=== PATIENT | female | born 1990 | race Two or more races ===

== ENCOUNTER 2018-01-05 01:18 | Inpatient (IN) | payer BC ==
[2018-01-05] MEDS ORDERED: Ondansetron 4 MG/2 ML SDV IVPUSH PRN (19:16)
[2018-01-05] MEDS ORDERED: Aluminum Hydroxide/Magnesium Hydroxide/Simethicone Susp 30 ML Cup PO PRN (19:16)
[2018-01-05] MEDS ORDERED: Terbutaline 1 MG/ML SDV SUBCUT ONE (19:16)
[2018-01-05] MEDS ORDERED: Methylergonovine 0.2 MG/1 ML Amp IM PRN (19:16)
[2018-01-05] MEDS ORDERED: Lidocaine 1% 50 ML MDV INJECT ONE (19:16)
[2018-01-05] MEDS ORDERED: fentaNYL 100 MCG/2 ML SDV IVPUSH PRN (19:16)
[2018-01-05] MEDS ORDERED: Acetaminophen 325 MG Tab PO PRN (19:16)
[2018-01-05] MEDS ORDERED: Sodium Chloride 0.9% 10 ML Syringe FLUSH PRN (19:16)
[2018-01-05] MEDS ORDERED: Misoprostol 100 MCG Tab VAG PRN (19:25)
[2018-01-05] MEDS ORDERED: Misoprostol 25 MCG (1/4 of 100 MCG) Tab VAG ONE (19:31)
[2018-01-05] MEDS ORDERED: Misoprostol 25 MCG (1/4 of 100 MCG) Tab VAG PRN (19:34)
--- NOTE | 2018-01-05 19:52 | PCM.LDHP ---
L&D History of Present Illness - General Date of Service: 01/05/18 Admit Problem/Dx: Patient Status Order with Admit Dx/Problem 01/05/18 19:16 Patient Status [ADT] Routine 01/05/18 19:25 Patient Status [ADT] Routine Admission Diagnosis/Problem Admission Diagnosis/Problem 39 weeks gestation of Source of Information: Patient History Limitations: Reports: No Limitations - History of Present Illness Introduction:: 27yo primip at 39 weeks gestation presents for cervical ripening and induction of labor due to LGA baby. Most recent ultrasound on 12/31/17 gave EFW of 8 lb 12 oz, >95% and prior ultrasound was on 11/29/17 and baby was on the 58%. Baby is vertex presentation on ultrasound. Her 1 hour glucola was normal at 97. has been unremarkable. labs show blood type O positive, antibody screen negative, Rubella immune, RPR NR, HBsAg negative, HIV negative, Hep C ab neg. Cell free DNA screen ([employer]) was normal with male gender. GBS test is negative. She did decline Tdap immunization antenatally, will offer again . She does plan to breastfeed. Patient denies having any contractions and no leaking of fluid and no vaginal bleeding. - Related Data Allergies/Adverse Reactions: Allergies Allergy/AdvReac Type Severity Reaction Status Date / Time No Known Allergies Allergy Verified 11/12/15 20:56 Home Medications: Home Meds . 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: Other (See Below) (PCOS) : 1 Para: 0 Social & Family History - Family History Family Medical History: Noncontributory - Tobacco Use Smoking Status *Q: Former Smoker Used Tobacco, but Quit: Yes - Tobacco Core Measures Tobacco Use/Smoking Within Last 30 Days: No Smokeless Tobacco Use in Last 30 Days: No - Alcohol Use Alcohol Use History: No - Recreational Drug Use Recreational Drug Use: No Drug Use in Last 12 Months: No - Sexual History Sexual History: Reports: Sexually Active, Single Partner - Living Situation & Occupation Living situation: Reports: H&P Review of Systems - Review of Systems: Review Of Systems: See Below General: Reports: No Symptoms HEENT: Reports: No Symptoms Pulmonary: Reports: No Symptoms Cardiovascular: Reports: No Symptoms Gastrointestinal: Reports: No Symptoms Genitourinary: Reports: No Symptoms Musculoskeletal: Reports: No Symptoms Skin: Reports: No Symptoms Psychiatric: Reports: No Symptoms Neurological: Reports: No Symptoms Hematologic/Lymphatic: Reports: No Symptoms Immunologic: Reports: No Symptoms L&D Exam - Exam Exam: See Below - Vital Signs Weight: 129.274 kg - OB Specific Movement: Active Heart Tones: Present Heart Tones per Min: 130 Heart Rate (FHR) Variability: Moderate (6-25 bmp) Presentation: Vertex Estimated Weight: 8 lb 12 oz - [place] Score Angeles Score Cervix Position: Midposition [place] Score Consistency: Medium [place] Score Effacement: 0-30% [place] Score Dilation: Closed [place] Score Infant's Station: -2 [place] Score Total: 3 - Exam General: Alert, Oriented HEENT: Conjunctiva Clear, Mucosa Moist & [place] Neck: Supple, Trachea Midline Lungs: Normal Respiratory Effort Cardiovascular: Regular Rate, Regular Rhythm GI/Abdominal Exam: Soft, Other (Obese) Genitourinary: Normal external exam Back Exam: Normal Inspection Extremities: Normal Inspection, No Pedal Edema Skin: Warm, Dry, Intact Neurological: Normal Gait, Normal Speech Psychiatric: Alert, Normal Affect, Normal Mood - Problem List (1) with 39 completed weeks gestation SNOMED Code(s): 19139088 ICD Code: Z3A.39 - 39 WEEKS GESTATION OF Status: Acute Current Visit: Yes (2) LGA (large for gestational age) fetus SNOMED Code(s): 119221410 ICD Code: [id number] - Status: Acute Current Visit: Yes (3) Obesity SNOMED Code(s): 868433391, 752847283 ICD Code: E66.9 - OBESITY, UNSPECIFIED Status: Acute Current Visit: Yes Problem List Initiated/Reviewed/Updated: Yes Orders Last 24hrs: Active Orders 24 hr Category Date Time Status Patient Status [ADT] Routine ADT 01/05/18 19:25 Active Activity as Tolerated [RC] PFP Care 01/05/18 19:16 Active Communication Order [RC] ASDIRECTED Care 01/05/18 19:16 Active Communication Order [RC] ASDIRECTED Care 01/05/18 19:25 Active Communication Order [RC] ASDIRECTED Care 01/05/18 19:25 Active Heart Tones [RC] ASDIRECTED Care 01/05/18 19:18 Active Monitoring [RC] INTERMITTENT Care 01/05/18 19:25 Active Notify Provider [RC] ASDIRECTED Care 01/05/18 19:25 Active Notify Provider [RC] PFP Care 01/05/18 19:16 Active Notify Provider [RC] PRN Care 01/05/18 19:16 Active Peripheral IV Care [RC] . DIRECTED Care 01/05/18 19:18 Active Up ad Kassandra [RC] ASDIRECTED Care 01/05/18 19:27 Active Vaginal Exam [RC] ASDIRECTED Care 01/05/18 19:25 Active Vital Signs [RC] PER UNIT ROUTINE Care 01/05/18 19:16 Active Regular Diet [DIET] Diet 01/06/18 Breakfast Active CBC W/O DIFF,HEMOGRAM [HEME] Stat Lab 01/05/18 19:16 Ordered RAPID PLASMA REAGIN,RPR [CHEM] Stat Lab 01/05/18 19:16 Ordered TYPE AND SCREEN [BBK] Stat Lab 01/05/18 19:16 Ordered UA W/O MICROSCOPIC [URIN] Stat Lab 01/05/18 19:16 Ordered Acetaminophen [Tylenol] Med 01/05/18 19:16 Active 650 mg PO Q4H PRN Alum Hydrox/Mag Hydrox/Simeth [Mag-Al Plus] Med 01/05/18 19:16 Active 30 ml PO Q8H PRN Lactated Ringers [Ringers, Lactated] 1,000 ml Med 01/05/18 19:30 Active IV ASDIRECTED Methylergonovine [Methergine] Med 01/05/18 19:16 Active 0.2 mg IM ONETIME PRN Misoprostol [Cytotec] Med 01/05/18 19:34 Active 25 mcg VAG Q4H PRN Ondansetron [Zofran] Med 01/05/18 19:16 Active 4 mg IVPUSH Q4H PRN Sodium Chloride 0.9% [Saline Flush] Med 01/05/18 19:16 Active 10 ml FLUSH ASDIRECTED PRN fentaNYL [Sublimaze] Med 01/05/18 19:16 Active 100 mcg IVPUSH Q1H PRN Electronic Heart Tones Ext w TOCO [WOMSER] Oth 01/05/18 19:16 Ordered Routine Electronic Heart Tones Internal [WOMSER] Per Unit Ot 01/05/18 19:16 Ordered Routine Peripheral IV Insertion Adult [OM.PC] Routine Oth 01/05/18 19:16 Ordered Resuscitation Status Routine Resus Stat 01/05/18 19:16 Ordered Medication Orders Acetaminophen (Tylenol) 650 mg PO Q4H PRN PRN Reason: Pain (Mild 1-3) and fever Al Hydroxide/Mg Hydroxide (Mag-Al Plus) 30 ml PO Q8H PRN PRN Reason: Heartburn Fentanyl (Sublimaze) 100 mcg IVPUSH Q1H PRN PRN Reason: Pain (moderate 4-6) Lactated Ringer's (Ringers, Lactated) 1,000 mls @ 100 mls/hr IV ASDIRECTED JORGE Methylergonovine Maleate (Methergine) 0.2 mg IM ONETIME PRN PRN Reason: Excessive Vaginal bleeding Misoprostol (Cytotec) 25 mcg VAG Q4H PRN PRN Reason: cervical ripening Ondansetron HCl (Zofran) 4 mg IVPUSH Q4H PRN PRN Reason: Nausea/Vomiting Sodium Chloride (Saline Flush) 10 ml FLUSH ASDIRECTED PRN PRN Reason: Keep Vein Open Assessment/Plan Comment:: 27 yo at 39 weeks gestation with LGA baby noted on ultrasound. has otherwise been unremarkable. GBS negative, blood type O positive. Pt is not having any contractions at this time. FHR is reactive. Plan: Will place Cytotec 25 mcg vaginally for cervical ripening and induction of labor per protocol. Intermittent FHR monitoring. Pitocin if needed once cervix has ripened. Mom plans to breast feed. Will plan skin to skin after delivery if baby is active and stable and allow self attachment of baby to breast. If baby is determined to be LGA after delivery, will need to monitor blood sugars per protocol.
[2018-01-06] MEDS ORDERED: Oxytocin/Lactated Ringers 10 UNIT/1,000 ML BAG IV SCH (05:30)
[2018-01-06] MEDS: Lactated Ringers 1,000 ML IV SCH ×6 (05:42→22:43)
--- NOTE | 2018-01-06 08:03 | PCM.PNLD ---
Labor Progress Note - VS & Meds Vital Signs: Last Vital Signs Temp 36.9 C 01/05/18 19:16 Pulse 82 01/05/18 19:16 Resp 16 01/05/18 19:16 BP 126/82 01/05/18 19:16 Pulse Ox Active Medications: Current Medications Acetaminophen (Tylenol) 650 mg PO Q4H PRN PRN Reason: Pain (Mild 1-3) and fever Al Hydroxide/Mg Hydroxide (Mag-Al Plus) 30 ml PO Q8H PRN PRN Reason: Heartburn Fentanyl (Sublimaze) 100 mcg IVPUSH Q1H PRN PRN Reason: Pain (moderate 4-6) Lactated Ringer's (Ringers, Lactated) 1,000 mls @ 100 mls/hr IV ASDIRECTED JORGE Last Admin: 01/06/18 05:42 Dose: 100 mls/hr Oxytocin/Lactated Ringer's (Pitocin In Lr 10 Units/1,000 Ml) 10 unit in 1,000 mls @ 12 mls/hr IV TITRATE JORGE; Protocol Last Admin: 01/06/18 05:46 Dose: 1 munits/min, 6 mls/hr Methylergonovine Maleate (Methergine) 0.2 mg IM ONETIME PRN PRN Reason: Excessive Vaginal bleeding Misoprostol (Cytotec) 25 mcg VAG Q4H PRN PRN Reason: cervical ripening Last Admin: 01/06/18 00:44 Dose: 25 mcg Ondansetron HCl (Zofran) 4 mg IVPUSH Q4H PRN PRN Reason: Nausea/Vomiting Sodium Chloride (Saline Flush) 10 ml FLUSH ASDIRECTED PRN PRN Reason: Keep Vein Open Discontinued Medications Lidocaine HCl (Xylocaine 1%) 10 ml INJECT ONETIME ONE Stop: 01/05/18 19:17 Misoprostol (Cytotec) 25 mcg VAG Q4H PRN PRN Reason: cervical ripening Misoprostol (Cytotec) 25 mcg VAG ONETIME ONE Stop: 01/05/18 19:32 Last Admin: 01/05/18 20:29 Dose: 25 mcg Terbutaline Sulfate (Brethine) 0.25 mg SUBCUT ONETIME ONE Stop: 01/05/18 19:17 - Uterine Contractions Uterine Monitoring Mode: External [place] Contraction Frequency (min): 1-2 Contraction Duration (sec): 60 Contraction Intensity: Mild to Moderate Uterine Resting Tone: Soft - Monitoring Monitor Mode: External Ultrasound Heart Rate (FHR) Baseline: 135 Heart Rate (FHR) Variability: Moderate (6-25 bmp) Accelerations: Present, 15x15 Decelerations: None Strip Review: Category I - Vaginal Exam Dilation (cm): 1 Effacement (Percent): 50 Station: -2 Cervical Position: Anterior Sterile Vaginal Exam Performed By: Phuong Sam - Labor Progress (Free Text) Labor Progress: Patient has had 2 doses of 25 mcg vaginal cytotec, last dose at 0045. She started having tightenings that have been q1-2 minutes that started about an hour after the second dose. Patient feels some discomfort in the back, but not distressed by the contractions. WE started pitocin at 1mU/min shortly after 0500 and it is still at 1 mu/min. Patient is comfortable sitting in the recliner, but have difficulty picking up FHR in that position. Strip has been category I all night. Assessment: Early labor Plan: Will increase pitocin per protocol. I will recheck at noon and at that time try to do AROM and apply internal scalp lead. Encourage ambulation and position changes.
[2018-01-06] MEDS ORDERED: Magnesium Sulfate/Water 40 GM/1,000 ML BAG ONE (08:04)
--- NOTE | 2018-01-06 12:58 | PCM.PNLD ---
Labor Progress Note - VS & Meds Vital Signs: Last Vital Signs Temp 36.9 C 01/05/18 19:16 Pulse 82 01/05/18 19:16 Resp 16 01/05/18 19:16 BP 126/82 01/05/18 19:16 Pulse Ox Active Medications: Current Medications Acetaminophen (Tylenol) 650 mg PO Q4H PRN PRN Reason: Pain (Mild 1-3) and fever Al Hydroxide/Mg Hydroxide (Mag-Al Plus) 30 ml PO Q8H PRN PRN Reason: Heartburn Fentanyl (Sublimaze) 100 mcg IVPUSH Q1H PRN PRN Reason: Pain (moderate 4-6) Lactated Ringer's (Ringers, Lactated) 1,000 mls @ 100 mls/hr IV ASDIRECTED JORGE Last Admin: 01/06/18 05:42 Dose: 100 mls/hr Oxytocin/Lactated Ringer's (Pitocin In Lr 10 Units/1,000 Ml) 10 unit in 1,000 mls @ 12 mls/hr IV TITRATE JORGE; Protocol Last Titration: 01/06/18 10:15 Dose: 4 munits/min, 24 mls/hr Methylergonovine Maleate (Methergine) 0.2 mg IM ONETIME PRN PRN Reason: Excessive Vaginal bleeding Misoprostol (Cytotec) 25 mcg VAG Q4H PRN PRN Reason: cervical ripening Last Admin: 01/06/18 00:44 Dose: 25 mcg Ondansetron HCl (Zofran) 4 mg IVPUSH Q4H PRN PRN Reason: Nausea/Vomiting Sodium Chloride (Saline Flush) 10 ml FLUSH ASDIRECTED PRN PRN Reason: Keep Vein Open Discontinued Medications Magnesium Sulfate (Magnesium Sulfate 40 Gm In Water 1000 Ml) Confirm Administered Dose 40 gm in 1,000 mls @ as directed .ROUTE .STK-MED ONE Stop: 01/06/18 08:05 Lidocaine HCl (Xylocaine 1%) 10 ml INJECT ONETIME ONE Stop: 01/05/18 19:17 Misoprostol (Cytotec) 25 mcg VAG Q4H PRN PRN Reason: cervical ripening Misoprostol (Cytotec) 25 mcg VAG ONETIME ONE Stop: 01/05/18 19:32 Last Admin: 01/05/18 20:29 Dose: 25 mcg Terbutaline Sulfate (Brethine) 0.25 mg SUBCUT ONETIME ONE Stop: 01/05/18 19:17 - Uterine Contractions Uterine Monitoring Mode: IUPC Contraction Frequency (min): 1-2 Contraction Duration (sec): 60 Contraction Intensity: Moderate Uterine Resting Tone: Soft - Monitoring Monitor Mode: Spiral Electrode Heart Rate (FHR) Baseline: 135 Heart Rate (FHR) Variability: Moderate (6-25 bmp) Accelerations: Present, 15x15 Decelerations: None Strip Review: Category I - Vaginal Exam Dilation (cm): 1-2 Effacement (Percent): 60 Station: -2 Cervical Position: Anterior Sterile Vaginal Exam Performed By: Phuong Sam - Labor Progress (Free Text) Labor Progress: Currently at 6mU/min pitocin infusion. Patient still pretty comfortable, but feels that the contractions are getting stronger. It has been very difficult to keep FHR monitoring and contractions monitoring with her position of comfort. Assessment - Early labor, still ineffective contractions, but difficult to monitor. Plan: AROM performed to augment labor and clear fluid draining. Discussed internal monitoring with parents and they consent. Internal scalp lead applied and IUPC appied. Resting tone is 30 mm Hg with contraction intensity about 45 and MVU in first 10 minute period was 180. Will increase pitocin as needed to get MVU about 250 as long as baby tolerates.
[2018-01-06] MEDS ORDERED: fentaNYL 100 MCG/2 ML SDV EPIDUR PRN (14:28)
[2018-01-06] MEDS ORDERED: ePHEDrine 50 MG/ML SDV IVPUSH PRN (14:28)
[2018-01-06] MEDS ORDERED: diphenhydrAMINE 50 MG/ML SDV IVPUSH PRN (14:28)
[2018-01-06] MEDS: Bupivacaine/fentaNYL/NS 100 ML Bag EPIDUR SCH ×2 (14:58→22:44)
--- NOTE | 2018-01-06 15:18 | PCM.PREANE ---
Preanesthetic Assessment - Anesthesia/Transfusion/Family Hx Anesthesia History: No Prior Anesthesia Family History of Anesthesia Reaction: No Transfusion History: No Prior Transfusion(s) - Review of Systems General: No Symptoms Pulmonary: No Symptoms Cardiovascular: No Symptoms Gastrointestinal: Abdominal Pain (labor contractions) Neurological: No Symptoms Other: Reports: None - Physical Assessment Pulse: 82 O2 Sat by Pulse Oximetry: 97 Respiratory Rate: 16 Blood Pressure: 126/82 Temperature: 36.3 C Vital Signs: Last Vital Signs Temp 36.9 C 01/05/18 19:16 Pulse 82 01/05/18 19:16 Resp 16 01/05/18 19:16 BP 126/82 01/05/18 19:16 Pulse Ox Height: 1.63 m Weight: 129.274 kg ASA Class: 2 Mental Status: Alert & Oriented x3 Airway Class: Mallampati = 2 Dentition: Reports: Normal Dentition Thyro-Mental Finger Breadths: 3 Mouth Opening Finger Breadths: 2 ROM/Head Extension: Full Lungs: Clear to Auscultation, Normal Respiratory Effort Cardiovascular: Regular Rate, Regular Rhythm - Lab Values: Laboratory Last Values WBC 8.76 K/mm3 (3.98-10.04) 01/05/18 19:35 RBC 4.48 M/mm3 (3.98-5.22) 01/05/18 19:35 Hgb 12.7 gm/L (11.2-15.7) 01/05/18 19:35 Hct 38.1 % (34.1-44.9) 01/05/18 19:35 MCV 85.0 fl (79.4-94.8) 01/05/18 19:35 MCH 28.3 pg (25.6-32.2) 01/05/18 19:35 MCHC 33.3 g/dl (32.2-35.5) 01/05/18 19:35 RDW Std Deviation 47.1 fL (36.4-46.3) H 01/05/18 19:35 Plt Count 238 K/mm3 (182-369) 01/05/18 19:35 MPV 11.3 fl (9.4-12.3) 01/05/18 19:35 Urine Color Yellow (Yellow) 01/05/18 22:30 Urine Appearance Clear (Clear) 01/05/18 22:30 Urine pH 7.0 (5.0-8.0) 01/05/18 22:30 Ur Specific [place] 1.015 (1.005-1.030) 01/05/18 22:30 Urine Protein Negative (Negative) 01/05/18 22:30 Urine Glucose (UA) Negative (Negative) 01/05/18 22:30 Urine Ketones Negative (Negative) 01/05/18 22:30 Urine Occult Blood Negative (Negative) 01/05/18 22:30 Urine Nitrite Negative (Negative) 01/05/18 22:30 Urine Bilirubin Negative (Negative) 01/05/18 22:30 Urine Urobilinogen 0.2 (0.2-1.0) 01/05/18 22:30 Ur Leukocyte Esterase 1+ (Negative) H 01/05/18 22:30 RPR Non-reactive (NONREACTIVE) 01/05/18 19:35 Blood Type O POSITIVE 01/05/18 19:35 Gel Antibody Screen Negative 01/05/18 19:35 - Allergies Allergies/Adverse Reactions: Allergies Allergy/AdvReac Type Severity Reaction Status Date / Time No Known Allergies Allergy Verified 11/12/15 20:56 - Blood Blood Available: No Product(s) Available: None - Anesthesia Plan Pre-Op Medication Ordered: None - Acknowledgements Anesthesia Type Planned: Epidural Pt an Appropriate Candidate for the Planned Anesthesia: Yes Alternatives and Risks of Anesthesia Discussed w Pt/Guardian: Yes Pt/Guardian Understands and Agrees with Anesthesia Plan: Yes PreAnesthesia Questionnaire - Past Health History Medical/Surgical History: Denies Medical/Surgical History Gastrointestinal History: Reports: GERD 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 [No Known Home Meds] 08/05/14 [History] Multivitamin [Multivitamins] 1 cap PO DAILY 11/12/15 [History] [place]-3/DHA/Epa/Fish Oil [Fish Oil] 0 mg PO DAILY 11/12/15 [History] - CURRENT (IN HOUSE) MEDS Current Meds: Current Medications Acetaminophen (Tylenol) 650 mg PO Q4H PRN PRN Reason: Pain (Mild 1-3) and fever Al Hydroxide/Mg Hydroxide (Mag-Al Plus) 30 ml PO Q8H PRN PRN Reason: Heartburn Diphenhydramine HCl (Benadryl) 25 mg IVPUSH Q6H PRN PRN Reason: Itching Ephedrine Sulfate (Ephedrine Sulfate) 5 mg IVPUSH ASDIRECTED PRN PRN Reason: HYPOTENTSION Fentanyl (Sublimaze) 100 mcg IVPUSH Q1H PRN PRN Reason: Pain (moderate 4-6) Last Admin: 01/06/18 14:58 Dose: 100 mcg Fentanyl (Sublimaze) 100 mcg EPIDUR Q3H PRN PRN Reason: Pain Fentanyl/Bupivacaine HCl (Fentanyl/Bupivacaine/Ns 2 Mcg-0.125% 100 Ml) 100 ml EPIDUR ASDIRECTED [facility] Last Admin: 01/06/18 14:58 Dose: 100 ml Lactated Ringer's (Ringers, Lactated) 1,000 mls @ 100 mls/hr IV ASDIRECTED [facility] Last Admin: 01/06/18 14:52 Dose: 100 mls/hr Oxytocin/Lactated Ringer's (Pitocin In Lr 10 Units/1,000 Ml) 10 unit in 1,000 mls @ 12 mls/hr IV TITRATE [facility]; Protocol Last Titration: 01/06/18 13:35 Dose: 6 munits/min, 36 mls/hr Methylergonovine Maleate (Methergine) 0.2 mg IM ONETIME PRN PRN Reason: Excessive Vaginal bleeding Misoprostol (Cytotec) 25 mcg VAG Q4H PRN PRN Reason: cervical ripening Last Admin: 01/06/18 00:44 Dose: 25 mcg Ondansetron HCl (Zofran) 4 mg IVPUSH Q4H PRN PRN Reason: Nausea/Vomiting Sodium Chloride (Saline Flush) 10 ml FLUSH ASDIRECTED PRN PRN Reason: Keep Vein Open Discontinued Medications Magnesium Sulfate (Magnesium Sulfate 40 Gm In Water 1000 Ml) Confirm Administered Dose 40 gm in 1,000 mls @ as directed .ROUTE .STK-MED ONE Stop: 01/06/18 08:05 Lidocaine HCl (Xylocaine 1%) 10 ml INJECT ONETIME ONE Stop: 01/05/18 19:17 Misoprostol (Cytotec) 25 mcg VAG Q4H PRN PRN Reason: cervical ripening Misoprostol (Cytotec) 25 mcg VAG ONETIME ONE Stop: 01/05/18 19:32 Last Admin: 01/05/18 20:29 Dose: 25 mcg Terbutaline Sulfate (Brethine) 0.25 mg SUBCUT ONETIME ONE Stop: 01/05/18 19:17
--- NOTE | 2018-01-06 18:51 | PCM.SN ---
- Free Text/Narrative Note: 1849 epidural gtt rate decreased to 10ml/hr VSS
[2018-01-06] MEDS ORDERED: Bupivacaine 0.25% 10 ML SDV ONE (22:00)
[2018-01-07] MEDS ORDERED: Metoclopramide 10 MG/2 ML SDV IVPUSH ONE (00:48)
[2018-01-07] MEDS ORDERED: ceFAZolin 2 GM in Premix Bag 1 BAG IV ONE (00:49)
[2018-01-07] MEDS ORDERED: Citric Acid/Sodium Citrate Solution 30 ML Cup PO ONE (00:49)
[2018-01-07] MEDS ORDERED: Bupivacaine 0.5% 30 ML SDV ONE (00:52)
[2018-01-07] MEDS ORDERED: Metoclopramide 10 MG/2 ML SDV ONE (00:52)
[2018-01-07] MEDS ORDERED: Citric Acid/Sodium Citrate Solution 30 ML Cup ONE (00:52)
--- NOTE | 2018-01-07 00:56 | PCM.CONS ---
H&P History of Present Illness - General Date of Service: 01/07/18 Admit Problem/Dx: Patient Status Order with Admit Dx/Problem 01/05/18 19:16 Patient Status [ADT] Routine 01/05/18 19:25 Patient Status [ADT] Routine Admission Diagnosis/Problem Admission Diagnosis/Problem 39 weeks gestation of Source of Information: Patient History Limitations: Reports: No Limitations - History of Present Illness Symptom Onset Date: 01/06/18 Duration of Symptoms: Reports: Hour(s): Improves with: Reports: None Worsens with: Reports: None Associated Symptoms: Reports: No Other Symptoms - Related Data Allergies/Adverse Reactions: Allergies Allergy/AdvReac Type Severity Reaction Status Date / Time No Known Allergies Allergy Verified 11/12/15 20:56 Home Medications: Home Meds . 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) (PCOS) Social & Family History - Family History Family Medical History: Noncontributory - Tobacco Use Smoking Status *Q: Former Smoker Used Tobacco, but Quit: Yes Second Hand Smoke Exposure: No - Caffeine Use Caffeine Use: Reports: None - Recreational Drug Use Recreational Drug Use: No Drug Use in Last 12 Months: No - Sexual History Sexual History: Reports: Sexually Active, Single Partner - Living Situation & Occupation Living situation: Reports: H&P Review of Systems - Review of Systems: Review Of Systems: See Below General: Reports: No Symptoms HEENT: Reports: No Symptoms Pulmonary: Reports: No Symptoms Cardiovascular: Reports: No Symptoms Gastrointestinal: Reports: No Symptoms Genitourinary: Reports: No Symptoms Musculoskeletal: Reports: No Symptoms Skin: Reports: No Symptoms Psychiatric: Reports: No Symptoms Neurological: Reports: No Symptoms Hematologic/Lymphatic: Reports: No Symptoms Immunologic: Reports: No Symptoms Exam - Exam Exam: See Below - Vital Signs Vital Signs: Last Vital Signs Temp 97.3 F 01/06/18 15:17 Pulse 82 01/06/18 15:17 Resp 16 01/06/18 15:17 BP 126/82 01/06/18 15:17 Pulse Ox 97 01/06/18 15:17 Weight: 285 lb - Exam (Female) Exam: Enlarged Uterus, Other (non-reassuring heart rate, failure to progress, 39 weeks 1 day, suspected macrosomia) - Patient Data Lab Results Last 24 hrs: Laboratory Results - last 24 hr 01/05/18 Range/Units 19:35 RPR Non-reactive (NONREACTIVE) Result Diagrams: 01/05/18 19:35 Consult PN Assessment/Plan Procedures: Procedures ASSAY OF ACTH (11/30/15) ASSAY OF FREE TESTOSTERONE (11/15/15) ASSAY OF GONADOTROPIN (FSH) (11/15/15) ASSAY OF GONADOTROPIN (LH) (11/15/15) ASSAY OF PROGESTERONE 17-D (11/15/15) ASSAY OF PROLACTIN (11/15/15) BLOOD TYPING SEROLOGIC ABO (07/12/17) BLOOD TYPING SEROLOGIC RH(D) (07/12/17) CHYLMD TRACH DNA AMP PROBE (07/19/17) COMPLETE CBC W/AUTO DIFF WBC (07/12/17) DEHYDROEPIANDROSTERONE (11/15/15) EMERGENCY DEPT VISIT (11/12/15) EMERGENCY DEPT VISIT (08/05/14) BIOPHYS PROFIL W/O NST (12/31/17) NON-STRESS TEST (11/16/17) HEPATITIS C AB TEST (07/12/17) HYDRATE IV INFUSION ADD-ON (08/05/14) N.GONORRHOEAE DNA AMP PROB (07/19/17) OB US >/= 14 WKS SNGL FETUS (09/06/17) OB US FOLLOW-UP PER FETUS (12/31/17) OB US LIMITED FETUS(S) (07/19/17) RBC ANTIBODY SCREEN (07/12/17) ROUTINE VENIPUNCTURE (08/16/17) STREP B DNA AMP PROBE (12/13/17) THER/PROPH/DIAG INJ IV PUSH (08/05/14) TOTAL CORTISOL (11/30/15) TX/PRO/DX INJ NEW DRUG ADDON (08/05/14) URINALYSIS AUTO W/O SCOPE (01/03/18) URINALYSIS AUTO W/SCOPE (11/16/17) URINE CULTURE/COLONY COUNT (09/13/17) URINE TEST (07/12/17) VARICELLA-ZOSTER ANTIBODY (07/12/17) (1) Failure to progress in labor, delivered, current hospitalization SNOMED Code(s): 066876488 Code(s): O62.2 - OTHER UTERINE INERTIA Current Visit: Yes (2) Non-reassuring heart tones, delivered, current hospitalization SNOMED Code(s): 579948873 Code(s): O76 - ABNLT IN HEART RATE AND RHYTHM COMP LABOR AND DELIVERY Current Visit: Yes (3) with 39 completed weeks gestation SNOMED Code(s): 45287987 Code(s): Z3A.39 - 39 WEEKS GESTATION OF Current Visit: Yes (4) LGA (large for gestational age) fetus SNOMED Code(s): 003769237 Code(s): CJS6489 - Current Visit: Yes (5) Obesity SNOMED Code(s): 948183791, 110295818 Code(s): E66.9 - OBESITY, UNSPECIFIED Current Visit: Yes Qualifiers: Obesity type: due to excess calories Obesity classification: unspecified obesity classification Serious obesity comorbidity presence: unspecified whether serious comorbidity present Qualified Code(s): E66.09 - Other obesity due to excess calories Problem List Initiated/Reviewed/Updated: No My Orders Last 24 Hours: My Active Orders 01/07/18 00:48 Metoclopramide [Reglan] 10 mg IVPUSH ONETIME ONE Schedule Procedure [COMM] Stat 01/07/18 00:49 Citric Acid/Sodium Citrate [Bicitra Solution] 30 ml PO ONETIME ONE ceFAZolin [Ancef] 2 gm Premix Bag 1 bag IV ONETIME Plan: section
--- NOTE | 2018-01-07 02:10 | PCM.OPNOTE ---
- General Post-Op/Procedure Note Date of Surgery/Procedure: 01/07/18 Operative Procedure(s): Primary section low segment transverse Pre Op Diagnosis: 39 weeks gestation, nonreassuring heart rate pattern, failure to progress Post-Op Diagnosis: Same plus nuchal cord times one Anesthesia Technique: Epidural Primary Surgeon: Steven Morel Secondary Surgeon: Phuong Sam Anesthesia Provider: Chong Cardenas Reason Mold Insert Changer Was Necessary: Retraction, difficult surgery, decrease comorbidity and comortality Role of Mold Insert Changer: Retraction, difficult surgery, decrease comorbidity and comortality Fluid Replacement, Intraop: 3,000 Output, Urine Amount: 100 EBL in mLs: 300 Drain/Tube Comments:: Gordon catheter Complications: None Condition: Good Free Text/Narrative:: Patient was transported to operating room and placed under epidural anesthesia in the supine position with wedge under the right hip and right flank. SCDs in place and functioning prior surgery. Patient received 2 g of Ancef intravenously. Utilizing C drape, patient prepared and draped in a sterile fashion. Timeout performed confirming name, date of , procedure as section. Adequate level of anesthesia was confirmed. was brought to the operating room. Injecting 20 mL of 0.5% Marcaine without epinephrine in the area of the planned incision which had been marked with marking pen. Pfannenstiel incision was made and carried sharp section to into the anterior fascia. Bladder flap created pushed caudad. Low segment transverse performed. Delivering a male liveborn is 0119 hours on 01/07/18. Dr. Yoo other sports official in attendance. Apgars 7/9. Weight 3880 g/8 lbs. 9 oz. Nuchal cord 1 tight reduced. After delivery of the cord blood gases were obtained see chart. Routine cord blood collected from three- vessel cord. Placenta removed manually inspected and intact discarded. Endometrial cavity was inspected and free of membrane remnants and placental remnants. Sponge needle pack instrument and sharp count correct times one and the uterus closed with running locking suture of #1 Monocryl for the first layer horizontal imbricating suture of modified Lembert type for the second layer. There was an inferior left laceration extending approximately 2-1/2 cm in length to 3 cm in length. This was also suture ligated in 2 layers. I would not recommend /TOLAC. Hemostasis was obtained. Both tubes and ovaries appeared normal. Clots cleaned from the cul-de-sac and gutters. Sponge needle pack asthma sharp count correct 2 and the abdominal cavity was closed with #1 PDS running locking suture beginning at each apex and ending in the midline. Subcutaneous tissue was irrigated and approximated with 0 Monocryl 3 sutures. Subcuticular closure the skin with Eitan needle 3-0 Monocryl. Dermabond Preneo applied. Clots were cleaned from the vagina at the end procedure. Patient transported postanesthesia care unit in satisfactory condition. No blood transfusions required during surgery.
[2018-01-07] MEDS ORDERED: Dextrose 5%-Lactated Ringers 1,000 ML IV SCH (02:17)
[2018-01-07] MEDS ORDERED: Sodium Chloride 0.9% 10 ML Syringe FLUSH PRN (02:17)
[2018-01-07] MEDS ORDERED: Ondansetron 4 MG/2 ML SDV IV PRN (02:17)
[2018-01-07] MEDS ORDERED: Naloxone 0.4 MG/ML SDV IVPUSH PRN (02:17)
[2018-01-07] MEDS ORDERED: Witch Hazel Medicated Pads 100/Jar TOP PRN (02:17)
[2018-01-07] MEDS ORDERED: diphenhydrAMINE 50 MG/ML SDV IVPUSH PRN (02:17)
[2018-01-07] MEDS ORDERED: ePHEDrine 50 MG/ML SDV IVPUSH PRN (02:17)
[2018-01-07] MEDS ORDERED: Lanolin 100% Cream 7 GM Tube TOP PRN (02:17)
[2018-01-07] MEDS ORDERED: Acetaminophen 325 MG Tab PO PRN (02:17)
--- NOTE | 2018-01-07 08:15 | PCM48HPAN ---
Post Anesthesia Note - EVALUATION WITHIN 48HRS OF ANESTHETIC Vital Signs in Normal Range: Yes Patient Participated in Evaluation: Yes Respiratory Function Stable: Yes Airway Patent: Yes Cardiovascular Function Stable: Yes Hydration Status Stable: Yes Pain Control Satisfactory: Yes Nausea and Vomiting Control Satisfactory: Yes Mental Status Recovered: Yes Pulse Rate: 92 Resp Rate: 16 Temperature: 98.2 F Blood Pressure: 128/79
[2018-01-07] MEDS: Ketorolac 30 MG/ML SDV IVPUSH SCH ×3 (09:19→21:26)
[2018-01-07] MEDS: Docusate Sodium 100 MG Cap PO PRN ×2 (10:10→21:27)
--- NOTE | 2018-01-07 13:26 | PCM.SN ---
- Free Text/Narrative Note: DOS/DOD 01/07/18 1324 Afebrile. No cough or chest congestion. Uterus involuting normally. Incision normal no drainage. No heavy vaginal bleeding. No leg cramping. This is day of delivery. Dr. Tiwari community relations director tomorrow. I will see patient morning.
--- NOTE | 2018-01-08 07:14 | PCM.PNPP ---
- General Info Date of Service: 01/08/18 Functional Status: Reports: Pain Controlled - Review of Systems General: Reports: No Symptoms HEENT: Reports: No Symptoms Pulmonary: Reports: No Symptoms Cardiovascular: Reports: No Symptoms Gastrointestinal: Reports: No Symptoms Genitourinary: Reports: No Symptoms Musculoskeletal: Reports: No Symptoms Skin: Reports: No Symptoms Neurological: Reports: No Symptoms Psychiatric: Reports: No Symptoms - General Info Date of Service: 01/08/18 - Patient Data Vital Signs - Most Recent: Last Vital Signs Temp 36.6 C 01/08/18 03:00 Pulse 84 01/08/18 03:00 Resp 17 01/08/18 03:00 BP 114/76 01/08/18 03:00 Pulse Ox 96 01/08/18 03:00 Weight - Most Recent: 129.274 kg I&O - Last 24 Hours: Intake & Output 01/07/18 01/08/18 01/08/18 22:59 06:59 14:59 Intake Total 450 Output Total 450 Balance 0 Lab Results - Last 24 Hours: Laboratory Results - last 24 hr 01/07/18 Range/Units 06:25 Manual Slide Review Abnormal smear Med Orders - Current: Current Medications Acetaminophen (Tylenol) 650 mg PO Q4H PRN PRN Reason: mild pain or fever Diphenhydramine HCl (Benadryl) 25 mg IVPUSH Q6H PRN PRN Reason: Itching or Nausea Docusate Sodium (Colace) 100 mg PO Q12H PRN PRN Reason: Constipation Last Admin: 01/07/18 21:27 Dose: 100 mg Emollient Ointment (Lansinoh Hpa) 0 gm TOP ASDIRECTED PRN PRN Reason: Sore Nipples Last Admin: 01/07/18 10:11 Dose: 1 applicful Ephedrine Sulfate (Ephedrine Sulfate) 5 mg IVPUSH SEECOMMENT PRN PRN Reason: Other Ibuprofen (Motrin) 600 mg PO Q6H PRN PRN Reason: mild pain or fever Naloxone HCl (Narcan) 0.1 mg IVPUSH SEECOMMENT PRN PRN Reason: Respiratory Depression Ondansetron HCl (Zofran) 4 mg IV Q8H PRN PRN Reason: Nausea/Vomiting Oxycodone/Acetaminophen (Percocet 325-5 Mg) 2 tab PO Q4H PRN PRN Reason: Pain (moderate 4-6) Sodium Chloride (Saline Flush) 10 ml FLUSH ASDIRECTED PRN PRN Reason: Keep Vein Open Witch Najma (Tucks) 1 pad TOP ASDIRECTED PRN PRN Reason: Perineal Comfort Measure Discontinued Medications Acetaminophen (Tylenol) 650 mg PO Q4H PRN PRN Reason: Pain (Mild 1-3) and fever Al Hydroxide/Mg Hydroxide (Mag-Al Plus) 30 ml PO Q8H PRN PRN Reason: Heartburn Bupivacaine HCl (Marcaine 0.5%) Confirm Administered Dose 30 ml .ROUTE .STK-MED ONE Stop: 01/07/18 00:53 Bupivacaine HCl (Sensorcaine-Mpf 0.25%) 10 ml .ROUTE .STK-MED ONE Stop: 01/06/18 22:01 Citric Acid/Sodium Citrate (Bicitra Solution) 30 ml PO ONETIME ONE Stop: 01/07/18 00:50 Last Admin: 01/07/18 00:56 Dose: 30 ml Citric Acid/Sodium Citrate (Bicitra Solution) Confirm Administered Dose 30 ml .ROUTE .STK-MED ONE Stop: 01/07/18 00:53 Diphenhydramine HCl (Benadryl) 25 mg IVPUSH Q6H PRN PRN Reason: Itching Ephedrine Sulfate (Ephedrine Sulfate) 5 mg IVPUSH ASDIRECTED PRN PRN Reason: HYPOTENTSION Fentanyl (Sublimaze) 100 mcg IVPUSH Q1H PRN PRN Reason: Pain (moderate 4-6) Last Admin: 01/06/18 14:58 Dose: 100 mcg Fentanyl (Sublimaze) 100 mcg EPIDUR Q3H PRN PRN Reason: Pain Fentanyl/Bupivacaine HCl (Fentanyl/Bupivacaine/Ns 2 Mcg-0.125% 100 Ml) 100 ml EPIDUR ASDIRECTED JORGE Last Admin: 01/06/18 22:44 Dose: 100 ml Lactated Ringer's (Ringers, Lactated) 1,000 mls @ 100 mls/hr IV ASDIRECTED JORGE Last Admin: 01/06/18 22:43 Dose: 100 mls/hr Oxytocin/Lactated Ringer's (Pitocin In Lr 10 Units/1,000 Ml) 10 unit in 1,000 mls @ 12 mls/hr IV TITRATE JORGE; Protocol Last Titration: 01/06/18 23:15 Dose: 10 munits/min, 60 mls/hr Magnesium Sulfate (Magnesium Sulfate 40 Gm In Water 1000 Ml) Confirm Administered Dose 40 gm in 1,000 mls @ as directed .ROUTE .[facility] ONE Stop: 01/06/18 08:05 Last Admin: 01/06/18 18:36 Dose: Not Given Cefazolin Sodium/Dextrose 2 gm (/ Premix) 50 mls @ 100 mls/hr IV ONETIME ONE Stop: 01/07/18 01:18 Dextrose/Lactated Ringer's (Dextrose 5%-Lactated Ringers) 1,000 mls @ 125 mls/ hr IV ASDIRECTED [facility] Stop: 01/07/18 10:16 Last Admin: 01/07/18 15:44 Dose: Not Given Ketorolac Tromethamine (Toradol) 30 mg IVPUSH Q6H [facility] Stop: 01/07/18 19:31 Last Admin: 01/07/18 21:26 Dose: 30 mg Lidocaine HCl (Xylocaine 1%) 10 ml INJECT ONETIME ONE Stop: 01/05/18 19:17 Methylergonovine Maleate (Methergine) 0.2 mg IM ONETIME PRN PRN Reason: Excessive Vaginal bleeding Metoclopramide HCl (Reglan) 10 mg IVPUSH ONETIME ONE Stop: 01/07/18 00:49 Last Admin: 01/07/18 00:57 Dose: 10 mg Metoclopramide HCl (Reglan) Confirm Administered Dose 10 mg .ROUTE .STK-MED ONE Stop: 01/07/18 00:53 Misoprostol (Cytotec) 25 mcg VAG Q4H PRN PRN Reason: cervical ripening Misoprostol (Cytotec) 25 mcg VAG ONETIME ONE Stop: 01/05/18 19:32 Last Admin: 01/05/18 20:29 Dose: 25 mcg Misoprostol (Cytotec) 25 mcg VAG Q4H PRN PRN Reason: cervical ripening Last Admin: 01/06/18 00:44 Dose: 25 mcg Ondansetron HCl (Zofran) 4 mg IVPUSH Q4H PRN PRN Reason: Nausea/Vomiting Sodium Chloride (Saline Flush) 10 ml FLUSH ASDIRECTED PRN PRN Reason: Keep Vein Open Terbutaline Sulfate (Brethine) 0.25 mg SUBCUT ONETIME ONE Stop: 01/05/18 19:17 - Infant Interaction Support Person: - Recovery Exam Fundal Tone: Firm Fundal Level: At Umbilicus Fundal Placement: Midline Lochia Amount: Small, Moderate Lochia Color: Rubra/Red Perineum Description: Intact, Minimal Bruising/Swelling Episiotomy/Laceration: None Bladder Status: Voiding Urinary Elimination: Indwelling Catheter - Exam General: Alert, Oriented HEENT: Pupils Equal Neck: Supple Lungs: Clear to Auscultation, Normal Respiratory Effort Cardiovascular: Regular Rate, Regular Rhythm GI/Abdominal Exam: Normal Bowel Sounds, Soft, Non-Tender, No Organomegaly, No Distention, No Abnormal Bruit, No Mass, Pelvis Stable Extremities: Normal Inspection, Normal Range of Motion, Non-Tender, No Pedal Edema, Normal Capillary Refill Skin: Warm, Dry, Intact Wound/Incisions: Healing Well Neurological: No New Focal Deficit Psy/Mental Status: Alert, Normal Affect, Normal Mood - Problem List Review Problem List Initiated/Reviewed/Updated: Yes - Assessment Assessment:: day 1 Doing well. Anticipate discharge tomorrow.
[2018-01-08] MEDS: Ibuprofen 600 MG Tab PO PRN ×2 (08:48→20:16)
[2018-01-08] MEDS: Acetaminophen/oxyCODONE 325-5 MG Tab PO PRN ×2 (16:55→23:53)
[2018-01-08] MEDS: Docusate Sodium 100 MG Cap PO PRN (23:54)
[2018-01-09] MEDS: Ibuprofen 600 MG Tab PO PRN (02:31)
--- NOTE | 2018-01-09 08:41 | PCM.DCSUM1 ---
Discharge Summary - Hospital Course Free Text/Narrative:: [facility] Post-Op/Procedure Note Patient Name: ASHLEY MONSALVE Date of : 89 Patient Status: Inpatient Attending Provider: Phuong Sam Date: 01/07/18 02:03 Initialization Date: 01/07/18 02:03 - General Post-Op/Procedure Note Date of Surgery/Procedure: 01/07/18 Operative Procedure(s): Primary section low segment transverse Pre Op Diagnosis: 39 weeks gestation, nonreassuring heart rate pattern, failure to progress Post-Op Diagnosis: Same plus nuchal cord times one Anesthesia Technique: Epidural Primary Surgeon: Steven Morel Secondary Surgeon: Phuong Sam Anesthesia Provider: Chong Cardenas Reason Guide Excursion Was Necessary: Retraction, difficult surgery, decrease comorbidity and comortality Role of Guide Excursion: Retraction, difficult surgery, decrease comorbidity and comortality Fluid Replacement, Intraop: 3,000 Output, Urine Amount: 100 EBL in mLs: 300 Drain/Tube Comments:: Gordon catheter Complications: None Condition: Good Free Text/Narrative:: Patient was transported to operating room and placed under epidural anesthesia in the supine position with wedge under the right hip and right flank. SCDs in place and functioning prior surgery. Patient received 2 g of Ancef intravenously. Utilizing C drape, patient prepared and draped in a sterile fashion. Timeout performed confirming name, date of , procedure as section. Adequate level of anesthesia was confirmed. was brought to the operating room. Injecting 20 mL of 0.5% Marcaine without epinephrine in the area of the planned incision which had been marked with marking pen. Pfannenstiel incision was made and carried sharp section to into the anterior fascia. Bladder flap created pushed caudad. Low segment transverse performed. Delivering a male liveborn is 0119 hours on 01/07/18. Dr. Yoo employment security officer in attendance. Apgars 7/9. Weight 3880 g/8 lbs. 9 oz. Nuchal cord 1 tight reduced. After delivery of the cord blood gases were obtained see chart. Routine cord blood collected from three- vessel cord. Placenta removed manually inspected and intact discarded. Endometrial cavity was inspected and free of membrane remnants and placental remnants. Sponge needle pack instrument and sharp count correct times one and the uterus closed with running locking suture of #1 Monocryl for the first layer horizontal imbricating suture of modified Lembert type for the second layer. There was an inferior left laceration extending approximately 2-1/2 cm in length to 3 cm in length. This was also suture ligated in 2 layers. I would not recommend /TOLAC. Hemostasis was obtained. Both tubes and ovaries appeared normal. Clots cleaned from the cul-de-sac and gutters. Sponge needle pack asthma sharp count correct 2 and the abdominal cavity was closed with #1 PDS running locking suture beginning at each apex and ending in the midline. Subcutaneous tissue was irrigated and approximated with 0 Monocryl 3 sutures. Subcuticular closure the skin with Eitan needle 3-0 Monocryl. Dermabond Preneo applied. Clots were cleaned from the vagina at the end procedure. Patient transported postanesthesia care unit in satisfactory condition. No blood transfusions required during surgery. HPI Initial Comments: [facility] Post-Op/Procedure Note Patient Name: ASHLEY MONSALVE Date of : 89 Patient Status: Inpatient Attending Provider: Phuong Sam Date: 01/07/18 02:03 Initialization Date: 01/07/18 02:03 - General Post-Op/Procedure Note Date of Surgery/Procedure: 01/07/18 Operative Procedure(s): Primary section low segment transverse Pre Op Diagnosis: 39 weeks gestation, nonreassuring heart rate pattern, failure to progress Post-Op Diagnosis: Same plus nuchal cord times one Anesthesia Technique: Epidural Primary Surgeon: Steven Morel Secondary Surgeon: Phuong Sam Anesthesia Provider: Chong Cardenas Reason Guide Excursion Was Necessary: Retraction, difficult surgery, decrease comorbidity and comortality Role of Guide Excursion: Retraction, difficult surgery, decrease comorbidity and comortality Fluid Replacement, Intraop: 3,000 Output, Urine Amount: 100 EBL in mLs: 300 Drain/Tube Comments:: Gordon catheter Complications: None Condition: Good Free Text/Narrative:: Patient was transported to operating room and placed under epidural anesthesia in the supine position with wedge under the right hip and right flank. SCDs in place and functioning prior surgery. Patient received 2 g of Ancef intravenously. Utilizing C drape, patient prepared and draped in a sterile fashion. Timeout performed confirming name, date of , procedure as section. Adequate level of anesthesia was confirmed. was brought to the operating room. Injecting 20 mL of 0.5% Marcaine without epinephrine in the area of the planned incision which had been marked with marking pen. Pfannenstiel incision was made and carried sharp section to into the anterior fascia. Bladder flap created pushed caudad. Low segment transverse performed. Delivering a male liveborn is 0119 hours on 01/07/18. Dr. Yoo employment security officer in attendance. Apgars 7/9. Weight 3880 g/8 lbs. 9 oz. Nuchal cord 1 tight reduced. After delivery of the cord blood gases were obtained see chart. Routine cord blood collected from three- vessel cord. Placenta removed manually inspected and intact discarded. Endometrial cavity was inspected and free of membrane remnants and placental remnants. Sponge needle pack instrument and sharp count correct times one and the uterus closed with running locking suture of #1 Monocryl for the first layer horizontal imbricating suture of modified Lembert type for the second layer. There was an inferior left laceration extending approximately 2-1/2 cm in length to 3 cm in length. This was also suture ligated in 2 layers. I would not recommend /TOLAC. Hemostasis was obtained. Both tubes and ovaries appeared normal. Clots cleaned from the cul-de-sac and gutters. Sponge needle pack asthma sharp count correct 2 and the abdominal cavity was closed with #1 PDS running locking suture beginning at each apex and ending in the midline. Subcutaneous tissue was irrigated and approximated with 0 Monocryl 3 sutures. Subcuticular closure the skin with Eitan needle 3-0 Monocryl. Dermabond Preneo applied. Clots were cleaned from the vagina at the end procedure. Patient transported postanesthesia care unit in satisfactory condition. No blood transfusions required during surgery. Brief History: [facility] . Post-Op/Procedure Note. Patient Name: ASHLEY MONSALVE DESIREEMedical Record Number: [id number]. Date of : [birth year]Patient Status: Inpatient. Attending Provider: Phuong SamAccount Number: [id number]. Date: 01/07/18 02:03Initialization Date: 01/07/18 02:03. - General Post-Op/Procedure Note. Date of Surgery/Procedure: 01/07/18. Operative Procedure(s): Primary section low segment transverse. Pre Op Diagnosis: 39 weeks gestation, nonreassuring heart rate pattern, failure to progress. Post-Op Diagnosis: Same plus nuchal cord times one. Anesthesia Technique: Epidural. Primary Surgeon: Steven Morel. Secondary Surgeon: Phuong Sam. Anesthesia Provider: Chong Cardenas. Reason Guide Excursion Was Necessary: Retraction, difficult surgery, decrease comorbidity and comortality. Role of Guide Excursion: Retraction, difficult surgery, decrease comorbidity and comortality. Fluid Replacement, Intraop: 3,000. Output, Urine Amount: 100. EBL in mLs: 300. Drain/Tube Comments:: Gordon catheter. Complications: None. Condition: Good. Free Text/Narrative:: Patient was transported to operating room and placed under epidural anesthesia in the supine position with wedge under the right hip and right flank. SCDs in place and functioning prior surgery. Patient received 2 g of Ancef intravenously. Utilizing C drape, patient prepared and draped in a sterile fashion. Timeout performed confirming name, date of , procedure as section. Adequate level of anesthesia was confirmed. was brought to the operating room. Injecting 20 mL of 0.5% Marcaine without epinephrine in the area of the planned incision which had been marked with marking pen. Pfannenstiel incision was made and carried sharp section to into the anterior fascia. Bladder flap created pushed caudad. Low segment transverse performed. Delivering a male liveborn is 0119 hours on 01/07/18. Dr. Enoch Acevedo employment security officer in attendance. Apgars 7/9. Weight 3880 g/8 lbs. 9 oz. Nuchal cord 1 tight reduced. After delivery of the cord blood gases were obtained see chart. Routine cord blood collected from three-vessel cord. Placenta removed manually inspected and intact discarded. Endometrial cavity was inspected and free of membrane remnants and placental remnants. Sponge needle pack instrument and sharp count correct times one and the uterus closed with running locking suture of #1 Monocryl for the first layer horizontal imbricating suture of modified Lembert type for the second layer. There was an inferior left laceration extending approximately 2-1/2 cm in length to 3 cm in length. This was also suture ligated in 2 layers. I would not recommend / TOLAC. Hemostasis was obtained. Both tubes and ovaries appeared normal. Clots cleaned from the cul-de-sac and gutters. Sponge needle pack asthma sharp count correct 2 and the abdominal cavity was closed with #1 PDS running locking suture beginning at each apex and ending in the midline. Subcutaneous tissue was irrigated and approximated with 0 Monocryl 3 sutures. Subcuticular closure the skin with Eitan needle 3-0 Monocryl. Dermabond Preneo applied. Clots were cleaned from the vagina at the end procedure. Patient transported postanesthesia care unit in satisfactory condition. No blood transfusions required during surgery. Diagnosis: Stroke: No - Discharge Data Discharge Date: 01/09/18 Discharge Disposition: Home, Self-Care 01 Condition: Good - Discharge Diagnosis/Problem(s) (1) Failure to progress in labor, delivered, current hospitalization SNOMED Code(s): 437493008 ICD Code: O62.2 - OTHER UTERINE INERTIA Status: Acute Current Visit: Yes (2) Non-reassuring heart tones, delivered, current hospitalization SNOMED Code(s): 107610149 ICD Code: O76 - ABNLT IN HEART RATE AND RHYTHM COMP LABOR AND DELIVERY Status: Acute Current Visit: Yes (3) with 39 completed weeks gestation SNOMED Code(s): 76970126 ICD Code: Z3A.39 - 39 WEEKS GESTATION OF Status: Acute Current Visit: Yes (4) LGA (large for gestational age) fetus SNOMED Code(s): 241211084 ICD Code: [id number] - Status: Acute Current Visit: Yes (5) Obesity SNOMED Code(s): 938391371, 826953346 ICD Code: E66.9 - OBESITY, UNSPECIFIED Status: Acute Current Visit: Yes Qualifiers: Obesity type: due to excess calories Obesity classification: unspecified obesity classification Serious obesity comorbidity presence: unspecified whether serious comorbidity present Qualified Code(s): E66.09 - Other obesity due to excess calories - Patient Summary/Data Operative Procedure(s) Performed: Primary section low segment transverse Complications: None Consults: None except preop with me. Hospital Course: Uneventful - Patient Instructions Diet: Regular Diet as Tolerated Driving: Do Not Drive (48 hours) Showering/Bathing: May Shower, No Tub Bathing/Swimming (6 weeks) Wound/Incision Care: Keep Operative Site/Wound Site Clean and Dry Notify Provider of: Fever, Increased Pain, Swelling and Redness, Drainage, Nausea and/or Vomiting - Discharge Plan Prescriptions/Med Rec: Ibuprofen 200 - 600 mg PO Q6H #50 capsule Home Medications: Home Meds Multivitamin [Multivitamins] 1 cap PO DAILY 11/12/15 [History] [place]-3/DHA/Epa/Fish Oil [Fish Oil] 0 mg PO DAILY 11/12/15 [History] Acetaminophen [Tylenol] 650 mg PO Q4H PRN tablet 01/09/18 [Rx] Docusate Sodium [Colace] 100 mg PO Q12H PRN cap 01/09/18 [Rx] Ibuprofen 200 - 600 mg PO Q6H #50 capsule 01/09/18 [Rx] Lanolin [Lansinoh HPA] 1 applic TOP ASDIRECTED PRN tube 01/09/18 [Rx] Referrals: Steven Morel MD [Physician] - (A component see me in 2 weeks to do .) - Discharge Summary/Plan Comment DC Time >30 min.: No - Patient Data Vitals - Most Recent: Last Vital Signs Temp 97.8 F 01/09/18 02:49 Pulse 80 01/09/18 02:49 Resp 17 01/09/18 02:49 BP 122/96 H 01/09/18 02:49 Pulse Ox 99 01/09/18 02:49 Weight - Most Recent: 285 lb I&O - Last 24 hours: Intake & Output 01/08/18 01/09/18 01/09/18 22:59 06:59 14:59 Intake Total 240 Balance 240 Med Orders - Current: Current Medications Acetaminophen (Tylenol) 650 mg PO Q4H PRN PRN Reason: mild pain or fever Diphenhydramine HCl (Benadryl) 25 mg IVPUSH Q6H PRN PRN Reason: Itching or Nausea Docusate Sodium (Colace) 100 mg PO Q12H PRN PRN Reason: Constipation Last Admin: 01/08/18 23:54 Dose: 100 mg Emollient Ointment (Lansinoh Hpa) 0 gm TOP ASDIRECTED PRN PRN Reason: Sore Nipples Last Admin: 01/07/18 10:11 Dose: 1 applicful Ephedrine Sulfate (Ephedrine Sulfate) 5 mg IVPUSH SEECOMMENT PRN PRN Reason: Other Ibuprofen (Motrin) 600 mg PO Q6H PRN PRN Reason: mild pain or fever Last Admin: 01/09/18 02:31 Dose: 600 mg Naloxone HCl (Narcan) 0.1 mg IVPUSH SEECOMMENT PRN PRN Reason: Respiratory Depression Ondansetron HCl (Zofran) 4 mg IV Q8H PRN PRN Reason: Nausea/Vomiting Oxycodone/Acetaminophen (Percocet 325-5 Mg) 2 tab PO Q4H PRN PRN Reason: Pain (moderate 4-6) Last Admin: 01/08/18 23:53 Dose: 1 tab Sodium Chloride (Saline Flush) 10 ml FLUSH ASDIRECTED PRN PRN Reason: Keep Vein Open Witch Najma (Tucks) 1 pad TOP ASDIRECTED PRN PRN Reason: Perineal Comfort Measure Discontinued Medications Acetaminophen (Tylenol) 650 mg PO Q4H PRN PRN Reason: Pain (Mild 1-3) and fever Al Hydroxide/Mg Hydroxide (Mag-Al Plus) 30 ml PO Q8H PRN PRN Reason: Heartburn Bupivacaine HCl (Marcaine 0.5%) Confirm Administered Dose 30 ml .ROUTE .STK-MED ONE Stop: 01/07/18 00:53 Bupivacaine HCl (Sensorcaine-Mpf 0.25%) 10 ml .ROUTE .STK-MED ONE Stop: 01/06/18 22:01 Citric Acid/Sodium Citrate (Bicitra Solution) 30 ml PO ONETIME ONE Stop: 01/07/18 00:50 Last Admin: 01/07/18 00:56 Dose: 30 ml Citric Acid/Sodium Citrate (Bicitra Solution) Confirm Administered Dose 30 ml .ROUTE .STK-MED ONE Stop: 01/07/18 00:53 Last Admin: 01/08/18 13:07 Dose: Not Given Diphenhydramine HCl (Benadryl) 25 mg IVPUSH Q6H PRN PRN Reason: Itching Ephedrine Sulfate (Ephedrine Sulfate) 5 mg IVPUSH ASDIRECTED PRN PRN Reason: HYPOTENTSION Fentanyl (Sublimaze) 100 mcg IVPUSH Q1H PRN PRN Reason: Pain (moderate 4-6) Last Admin: 01/06/18 14:58 Dose: 100 mcg Fentanyl (Sublimaze) 100 mcg EPIDUR Q3H PRN PRN Reason: Pain Fentanyl/Bupivacaine HCl (Fentanyl/Bupivacaine/Ns 2 Mcg-0.125% 100 Ml) 100 ml EPIDUR ASDIRECTED [facility] Last Admin: 01/06/18 22:44 Dose: 100 ml Lactated Ringer's (Ringers, Lactated) 1,000 mls @ 100 mls/hr IV ASDIRECTED [facility] Last Admin: 01/06/18 22:43 Dose: 100 mls/hr Oxytocin/Lactated Ringer's (Pitocin In Lr 10 Units/1,000 Ml) 10 unit in 1,000 mls @ 12 mls/hr IV TITRATE [facility]; Protocol Last Titration: 01/06/18 23:15 Dose: 10 munits/min, 60 mls/hr Magnesium Sulfate (Magnesium Sulfate 40 Gm In Water 1000 Ml) Confirm Administered Dose 40 gm in 1,000 mls @ as directed .ROUTE .STK-MED ONE Stop: 01/06/18 08:05 Last Admin: 01/06/18 18:36 Dose: Not Given Cefazolin Sodium/Dextrose 2 gm (/ Premix) 50 mls @ 100 mls/hr IV ONETIME ONE Stop: 01/07/18 01:18 Last Admin: 01/08/18 13:09 Dose: Not Given Dextrose/Lactated Ringer's (Dextrose 5%-Lactated Ringers) 1,000 mls @ 125 mls/ hr IV ASDIRECTED [facility] Stop: 01/07/18 10:16 Last Admin: 01/07/18 15:44 Dose: Not Given Ketorolac Tromethamine (Toradol) 30 mg IVPUSH Q6H [facility] Stop: 01/07/18 19:31 Last Admin: 01/07/18 21:26 Dose: 30 mg Lidocaine HCl (Xylocaine 1%) 10 ml INJECT ONETIME ONE Stop: 01/05/18 19:17 Last Admin: 01/08/18 13:11 Dose: Not Given Methylergonovine Maleate (Methergine) 0.2 mg IM ONETIME PRN PRN Reason: Excessive Vaginal bleeding Metoclopramide HCl (Reglan) 10 mg IVPUSH ONETIME ONE Stop: 01/07/18 00:49 Last Admin: 01/07/18 00:57 Dose: 10 mg Metoclopramide HCl (Reglan) Confirm Administered Dose 10 mg .ROUTE .STK-MED ONE Stop: 01/07/18 00:53 Last Admin: 01/08/18 13:08 Dose: Not Given Misoprostol (Cytotec) 25 mcg VAG Q4H PRN PRN Reason: cervical ripening Misoprostol (Cytotec) 25 mcg VAG ONETIME ONE Stop: 01/05/18 19:32 Last Admin: 01/05/18 20:29 Dose: 25 mcg Misoprostol (Cytotec) 25 mcg VAG Q4H PRN PRN Reason: cervical ripening Last Admin: 01/06/18 00:44 Dose: 25 mcg Ondansetron HCl (Zofran) 4 mg IVPUSH Q4H PRN PRN Reason: Nausea/Vomiting Sodium Chloride (Saline Flush) 10 ml FLUSH ASDIRECTED PRN PRN Reason: Keep Vein Open Terbutaline Sulfate (Brethine) 0.25 mg SUBCUT ONETIME ONE Stop: 01/05/18 19:17 Last Admin: 01/08/18 13:11 Dose: Not Given
[2018-01-09 10:30] VITALS: BP 124/79
== END 2018-01-09 10:53 | disposition home or self-care (01) | DRG 540 ==
LOC: JD.OB 01:18 → OBSVTOIN 01-07 01:18 → JD.OB 01-07 01:19
PROVIDERS: ADMIT Family Medicine; ATTEND Family Medicine
PROC: 10907ZC Drainage of Amniotic Fluid, Therapeutic from Products of Conception, Via Natural or Artificial Opening (ICD-10-PCS; 2018-01-06)
PROC: 3E0P7VZ Introduction of Hormone into Female Reproductive, Via Natural or Artificial Opening (ICD-10-PCS; 2018-01-06)
PROC: 3E033VJ Introduction of Other Hormone into Peripheral Vein, Percutaneous Approach (ICD-10-PCS; 2018-01-06)
PROC: 10H073Z Insertion of Monitoring Electrode into Products of Conception, Via Natural or Artificial Opening (ICD-10-PCS; 2018-01-06)
PROC: 10H07YZ Insertion of Other Device into Products of Conception, Via Natural or Artificial Opening (ICD-10-PCS; 2018-01-06)
PROC: 00HU33Z Insertion of Infusion Device into Spinal Canal, Percutaneous Approach (ICD-10-PCS; 2018-01-06)
PROC: 3E0R3BZ Introduction of Anesthetic Agent into Spinal Canal, Percutaneous Approach (ICD-10-PCS; 2018-01-06)
PROC: 10D00Z1 Extraction of Products of Conception, Low, Open Approach (ICD-10-PCS; principal; 2018-01-07)
PROC: 6A550ZT Pheresis of Cord Blood Stem Cells, Single (ICD-10-PCS; 2018-01-07)
DX: O36.63X0 Maternal care for excessive fetal growth, third trimester, not applicable or unspecified (principal); O99.214 Obesity complicating childbirth; E66.9 Obesity, unspecified; Z68.41 Body mass index [BMI] 40.0-44.9, adult; O76 Abnormality in fetal heart rate and rhythm complicating labor and delivery; O69.1XX0 Labor and delivery complicated by cord around neck, with compression, not applicable or unspecified; O62.2 Other uterine inertia; Z3A.39 39 weeks gestation of pregnancy; Z37.0 Single live birth; Z87.891 Personal history of nicotine dependence
CPT/HCPCS: 36415; 36600; 51702; 59025; 81003; 82803; 85025; 85027; 86592; 86850; 86900; 86901; A9270-GY; J1885; J2590; J2765; J3010; J7120